=== PATIENT | male | born 1990 | race Caucasian/White ===

== ENCOUNTER 2016-07-17 10:51 | Emergency (ER) | payer SELFPAY ==
[2016-07-17 11:03] VITALS: BP 161/96; PULSE 70; RESP 18; TEMP 98.1; O2SAT 100
[2016-07-17] MEDS ORDERED: Morphine 4 mg/ml ISec IM STA (11:20)
[2016-07-17 11:31] VITALS: BMI 28.2
--- NOTE | 2016-07-17 11:31 | ED PDOC ---
Arrival/HPI - General Time Seen by Provider: 07/17/16 11:02 Historian: Patient - History of Present Illness Narrative History of Present Illness (Text): 07/17/16 11:02 A 25 year old male presents to the emergency department complaining of sudden onset right testicular pain that began 30 minutes prior to arrival. Patient denies any and trauma/injuries, dysuria, urinary frequency, abdominal pain, or any other complaints at this time. Time/Duration: 1/2 hour Symptom Onset: Sudden Symptom Course: Unchanged Quality: Other ("pain") Activities at Onset: Rest Context: Home Past Medical History - Provider Review Nursing Documentation Reviewed: Yes - Infectious Disease Hx of Infectious Diseases: None - Psychiatric Hx Substance Use: No Family/Social History - Physician Review Nursing Documentation Reviewed: Yes Family/Social History: No Known Family HX Smoking Status: Never Smoked Hx Alcohol Use: Yes Frequency of alcohol use: Socially Hx Substance Use: No Allergies/Home Meds Allergies/Adverse Reactions: Allergies No Known Allergies Allergy (Verified 07/17/16 11:03) Physical Exam - Physical Exam Narrative Physical Exam (Text): - Review of Systems Constitutional: Normal. absent: Fatigue, Weight Change, Fevers Eyes: Normal ENT: Normal Respiratory: Normal absent: SOB, Cough, Sputum Cardiovascular: Normal absent: Chest pain, Palpitations, Syncope Gastrointestinal: Normal absent: Abdominal pain, Diarrhea, Nausea, Vomiting Genitourinary: Right testicular pain. absent: Dysuria, Frequency, Hematuria Musculoskeletal: Normal. absent: Arthralgias, Back Pain, Neck Pain Skin: Normal Neurological: Normal absent: Focal Weakness Endocrine: Normal Hemo/Lymphatic: Normal Psychiatric: Normal - Physical exam Patient appears age appropriate, speaking full sentences without difficulty - Systems Exam Head: Present: Atraumatic, Normocephalic Pupils: Present: PERRL Extraocular Muscles: Present: EOMI Conjunctiva: Present: Normal Mouth: Present: Moist Mucous Membranes Neck: Present: Normal Range of Motion. No: MIDLINE TENDERNESS, Paraspinal Tenderness Respiratory/Chest: Present: Clear to Auscultation, Good Air Exchange. No: Respiratory Distress, Accessory Muscle Use, Tachypneic Cardiovascular: Present: Regular Rate and Rhythm, Normal S1, S2, Peripheral Pulses Present. No: Murmurs Abdomen: Present: Normal Bowel Sounds, No: Tenderness, Peritoneal Signs, Rebound, Guarding, Distention Genitourinary: Normal External Genitalia. Right and Left Testicles non-tender. Not high riding. No cremasteric reflex bilaterally. Female slot floor supervisor (EMT tech - Michelle) present. Back: Present: Normal Inspection. No: Midline Tenderness, Paraspinal Tenderness Upper Extremity: Present: Normal Inspection. No: Cyanosis, Edema Lower Extremity: Present: Normal Inspection. No: Edema Neurological: Present: GCS=15, Speech Normal, cranial nerves II through XII fully intact with no cerebellar abnormality, neuro-sensory fully intact. No focal neurological deficits. Skin: Present: Warm, Dry, Normal Color. No: Rashes Lymphatic: Present: OX3, NI, NC Psychiatric: Present: Alert, Oriented x 3, Normal Insight, Normal Concentration Vital Signs Temp Pulse Resp BP Pulse Ox 07/17/16 10:58 98.1 F 70 18 161/96 H 100 Temperature: Afebrile Blood Pressure: Hypertensive Pulse: Regular Respiratory Rate: Normal Appearance: Positive for: Well-Appearing, Non-Toxic, Comfortable Pain Distress: None Mental Status: Positive for: Alert and Oriented X 3 Medical Decision Making ED Course and Treatment: 07/17/16 11:02 Impression: A 25 year old male with right testicular pain. Patient seen and examined immediately upon arrival. Imaging and pain medication ordered. Differential Diagnosis include but are not limited to: orchitis vs. epididymitis vs. torsion Plan: -- Testes duplex ultrasound -- Urinalysis -- Chlamydia/GC RNA -- Morphine -- Reassess and disposition Progress Notes: 07/17/16 11:59 On reevaluation, the patient states his testicular pain is better but is now complaining of suprapubic abdominal discomfort. Will order a Abdomen/Pelvis CT to evaluate for ureteral stones. 07/17/16 12:20 Testes Duplex Ultrasound: Creator and Dictator: JUVENAL MEDINA MD IMPRESSION: Question of mild left orchitis. Small bilateral hydroceles. No evidence of mass or torsion. 07/17/16 12:45 Abdomen/Pelvis CT: Creator and Dictator: JUVENAL MEDINA MD IMPRESSION: Findings are consistent with recent passage of a 3 mm right renal stone which is now identified in the distal ureteral with periureteral inflammatory changes, diffuse dilatation of the proximal ureteral, mild hydronephrosis and perinephric inflammatory changes. Punctate nonobstructing stone in the upper pole of the left kidney. 07/17/16 12:51 pt in no distress, states he feels much better will dc home with flomax and urology contact f/u pt states he feels comfortable being dc home with outpatient f/u Pt states he understands to return to the ER right away for new or worsening symptoms or for inability to f/u with PMD or specialist as instructed. Patient states that he fully agrees with and understands discharge instructions. States that he agrees with the plan and disposition. Verbalized and repeated discharge instructions and plan. I have given the patient opportunity to ask any additional questions. - Lab Interpretations Lab Results: 07/17/16 12:00 07/17/16 12:00 Lab Results 07/17/16 12:00: WBC 10.6, RBC 4.99, Hgb 15.8, Hct 44.7, MCV 89.6, MCH 31.7, MCHC 35.3, RDW 12.6, Plt Count 191, MPV 11.5 H, Gran % 72.8 H, Lymph % (Auto) 20.1 L, [place] % (Auto) 6.6 H, Eos % (Auto) 0.3 L, Baso % (Auto) 0.2, Gran # 7.72 H, Lymph # 2.1, [place] # 0.7 H, Eos # 0.0, Baso # 0.02, Sodium 136, Potassium 3.7 , Chloride 99, Carbon Dioxide 23, Anion Gap 18, BUN 17, Creatinine 1.0, Est GFR ( Amer) > 60, Est GFR (Non-Af Amer) > 60, Random Glucose 105, Calcium 9.3 , Total Bilirubin 2.2 H, AST 32, ALT 37, Alkaline Phosphatase 65, Total Protein 8.0, Albumin 4.3, Globulin 3.7, Albumin/Globulin Ratio 1.2 07/17/16 11:56: Urine Color Yellow, Urine Appearance Clear, Urine pH 7.0, Ur Specific [place] 1.015, Urine Protein Trace H, Urine Glucose (UA) Negative, Urine Ketones 15 H, Urine Blood Trace-lysed H, Urine Nitrate Negative, Urine Bilirubin Negative, Urine Urobilinogen 1.0 H, Ur Leukocyte Esterase Negative, Urine RBC 0 - 2, Urine WBC 5 - 10, Ur Epithelial Cells 0 - 2, Amorphous Sediment Small I have reviewed the lab results: Yes - RAD Interpretation Radiology Orders: 07/17/16 11:03 TESTES DUPLEX COMPLETE [US] Stat 07/17/16 11:59 ABD & PELVIS W/O PO OR IV CONT [CT] Stat - Medication Orders Current Medication Orders: Sodium Chloride (Sodium Chloride 0.9%) 1,000 mls @ 1,000 mls/hr IV .Q1H STA Stop: 07/17/16 13:48 Ketorolac Tromethamine (Toradol) 15 mg IVP STAT STA Stop: 07/17/16 12:50 Tamsulosin HCl (Flomax) 0.4 mg PO STAT STA Stop: 07/17/16 12:50 Discontinued Medications Morphine Sulfate (Morphine) 6 mg IM STAT STA Stop: 07/17/16 11:11 Morphine Sulfate (Morphine) 8 mg IM STAT STA Stop: 07/17/16 11:21 Morphine Sulfate (Morphine) 8 mg IM STAT STA Stop: 07/17/16 11:21 Last Admin: 07/17/16 11:28 Dose: 8 MG IM Administration Charges Document 07/17/16 11:28 SE (Rec: 07/17/16 11:28 SE [id number]) Injection Site MAR Injection Site Left Arm Charges for Administration # of IM Administrations 1 - Scribe Statement The provider has reviewed the documentation as recorded by the Scribe Reynaldo Cole Provider Scribe Attestation: All medical record entries made by the Scribe were at my direction and personally dictated by me. I have reviewed the chart and agree that the record accurately reflects my personal performance of the history, physical exam, medical decision making, and the department course for this patient. I have also personally directed, reviewed, and agree with the discharge instructions and disposition. Disposition/Present on Arrival - Present on Arrival Any Indicators Present on Arrival: No History of DVT/PE: No History of Uncontrolled Diabetes: No Urinary Catheter: No History of Decub. Ulcer: No History Surgical Site Infection Following: None - Disposition Have Diagnosis and Disposition been Completed?: Yes Diagnosis: Ureteral colic Disposition: HOME/ ROUTINE Disposition Time: 12:54 Patient Plan: Discharge Condition: GOOD Discharge Instructions (ExitCare): Renal Colic (ED) Additional Instructions: PLEASE RETURN TO THE EMERGENCY DEPARTMENT FOR NEW OR WORSENING SYMPTOMS. RETURN RIGHT AWAY IF YOU CANNOT FOLLOW UP WITH YOUR PRIMARY CARE DOCTOR, CLINIC, OR SPECIALIST IN 1-2 DAYS. Prescriptions: Tamsulosin [Flomax] 0.4 mg PO DAILY #4 cap Ibuprofen [Motrin] 600 mg PO Q8 PRN #12 tab PRN Reason: Pain, Moderate (4-7) Referrals: Josue Dougherty MD [Staff Provider] - Follow up with primary Janett Dougherty MD [Staff Provider] - Follow up with primary Forms: WORK NOTE
[2016-07-17 12:12] LABS: ADD MANUAL DIFF? NO
[2016-07-17 12:14] LABS: URINE BILIRUBIN NEGATIVE (NEGATIVE); URINE BLOOD TRACE-LYSED (NEGATIVE); URINE GLUCOSE (UA) NEGATIVE (NEGATIVE); URINE KETONE 15 mg/dL (NEGATIVE); URINE LEUKOCYTE ESTERASE NEGATIVE Leu/uL (NEGATIVE); URINE PROTEIN TRACE mg/dL (<30 mg/dL)
[2016-07-17 12:17] LABS: URINE APPEARANCE CLEAR (CLEAR); URINE COLOR YELLOW (YELLOW)
[2016-07-17 12:17] LABS: BASO # 0.02 K/mm3 (0.0-2.0); BASO % 0.2 % (0.0-3.0); EOS % 0.3 % (1.5-5.0); GRAN # 7.72 (1.4-6.5); GRAN % 72.8 % (50.0-68.0); HEMATOCRIT 44.7 % (42.0-52.0); LYMPH # 2.1 (1.2-3.4); LYMPH % 20.1 % (22.0-35.0); MEAN CELL VOLUME 89.6 fL (80.0-105.0); MEAN CORPUSCULAR HEMOGLOBIN 31.7 pg (25.0-35.0); MEAN CORPUSCULAR HGB CONC 35.3 g/dl (31.0-37.0); MEAN PLATELET VOLUME 11.5 fl (7.0-11.0); MONO # 0.7 (0.1-0.6); MONO % 6.6 % (1.0-6.0); PLATELET COUNT 191 10^3/uL (120.0-450.0); RED CELL DISTRIBUTION WIDTH 12.6 % (11.5-14.5); WHITE BLOOD COUNT 10.6 10^3/ul (4.5-11.0)
--- NOTE | 2016-07-17 12:20 | US ---
HISTORY: ORCHITIS/EPIDIDYMITIS TECHNIQUE: Realtime sonography through the scrotum with color and doppler flow. COMPARISON: None Available. FINDINGS: RIGHT TESTICLE: Measures 4.5 x 2.1 x 2.7 cm. There is mild inhomogeneous echotexture and normal flow. RIGHT EPIDIDYMIS: Epididymal head measures 1.3 x 0.8 x 0.7 cm. Grossly unremarkable appearance with normal flow. LEFT TESTICLE: Measures 4.6 x 2.2 x 2.8 cm. There is mild inhomogeneous echotexture and increased flow. LEFT EPIDIDYMIS: Epididymal head measures 0.9 x 0.6 x 0.6 cm. There is a 2 mm cyst in the head. Normal flow. HYDROCELE: There are bilateral small hydroceles. VARICOCELE: None. OTHER FINDINGS: None. IMPRESSION: Question of mild left orchitis. Small bilateral hydroceles. No evidence of mass or torsion.
[2016-07-17 12:30] LABS: ALB/GLOB RATIO 1.2 (1.1-1.8); ALKALINE PHOSPHATASE 65 U/L (38-133); ALT/SGPT 37 U/L (7-56); AST/SGOT 32 U/L (15-59); BILIRUBIN,TOTAL 2.2 mg/dL (0.2-1.3); BLOOD UREA NITROGEN 17 mg/dL (7-21); CALCIUM 9.3 mg/dL (8.4-10.5); CARBON DIOXIDE 23 mmol/L (21-33); CHLORIDE 99 mmol/L (98-107); GFR AFRICAN-AMERICAN > 60; GLUCOSE,RANDOM 105 mg/dL (70-110); POTASSIUM 3.7 mmol/L (3.6-5.0); SODIUM 136 mmol/L (132-148)
[2016-07-17 12:36] LABS: URINE RBC 0 - 2 /hpf (0-2)
[2016-07-17 12:42] LABS: URINE EPITHELIAL CELLS 0 - 2 /hpf (0-5)
[2016-07-17 12:43] LABS: URINE AMORPHOUS SEDIMENT SMALL
--- NOTE | 2016-07-17 12:44 | CT ---
PROCEDURE: CT Abdomen and Pelvis without intravenous contrast HISTORY: Renal colic COMPARISON: None. TECHNIQUE: CT scan of the abdomen and pelvis was performed without administration of oral or intravenous contrast. Coronal and sagittal reformatted images were obtained. Radiation dose: Total exam DLP = 574.33 mGy-cm. FINDINGS: LOWER THORAX: The lung bases are clear. LIVER: The liver is normal in size. There is no intrahepatic biliary ductal dilatation GALLBLADDER AND BILE DUCTS: There are no calcified gallstones. PANCREAS: The pancreas is normal in size without ductal dilatation or calcifications. SPLEEN: The spleen is normal in size. ADRENALS: Both adrenal glands are normal in size without discrete nodule. KIDNEYS AND URETERS: There is a 3 mm stone in the right distal ureteral width resultant proximal ureteral dilatation, mild hydronephrosis, edema and enlargement of the right kidney and mild perinephric inflammatory changes. The left kidney is normal in size. There is significant ureteral wall thickening and periureteral edema in the distal right ureter. There is a punctate nonobstructing stone in the left upper pole. There is no left hydronephrosis or left ureteral is not dilated. VASCULATURE: Normal in caliber. No aortic aneurysm. BOWEL: The small bowel loops are normal in caliber. The colon is unremarkable. No obstruction. No gross mural thickening. APPENDIX: Not distinctly visualized. No inflammatory changes in the right lower quadrant. PERITONEUM: No free fluid. No free air. LYMPH NODES: No enlarged lymph nodes. BLADDER: Partially decompressed. REPRODUCTIVE: Unremarkable. BONES: No acute fracture. Within normal limits. OTHER FINDINGS: None. IMPRESSION: Findings are consistent with recent passage of a 3 mm right renal stone which is now identified in the distal ureteral with periureteral inflammatory changes, diffuse dilatation of the proximal ureteral, mild hydronephrosis and perinephric inflammatory changes. Punctate nonobstructing stone in the upper pole of the left kidney.
[2016-07-17] MEDS ORDERED: Sodium Chloride 0.9% 1,000 ML IV STA (12:49)
== END 2016-07-17 14:10 | disposition home or self-care (01) ==
LOC: ED 10:51
DX: N20.1 Calculus of ureter (principal)
CPT/HCPCS: 74176; 80053; 81001; 85025; 87086; 87491; 87591; 93975; 96372; 96374; 99283; J1885; J2270; J7040

== ENCOUNTER 2016-07-23 01:36 | Emergency (ER) | payer SELFPAY ==
[2016-07-23 01:37] VITALS: BMI 28.2
[2016-07-23 02:02] VITALS: RESP 16; TEMP 98.2
[2016-07-23] MEDS ORDERED: cefTRIAXone (Rocephin) 250 mg Inj IM STA (02:05)
[2016-07-23] MEDS ORDERED: Lidocaine 1% Inj (20ml) ONE (02:27)
--- NOTE | 2016-07-23 03:20 | ED PDOC ---
Arrival/HPI <BrunoYair - Last Filed: 07/23/16 03:33> - General Historian: Patient <Aditi Delgado - Last Filed: 07/23/16 04:01> - General Chief Complaint: Medical Clearance Time Seen by Provider: 07/23/16 01:59 - History of Present Illness Narrative History of Present Illness (Text): 07/23/16 25-year-old male presents today for treatment of chlamydia. Patient states he received a phone call telling him to come back into the hospital for a positive Chlamydia culture for which he was not treated when he was here in the emergency room. Patient denies penile discharge. Denies testicular pain at present time. Denies nausea vomiting diarrhea or constipation. No fevers or chills. (Aditi Delgado) Past Medical History - Provider Review Nursing Documentation Reviewed: Yes - Travel History Have you recently traveled outside [place] w/in the past 3 mons?: No - Infectious Disease Hx of Infectious Diseases: None - Tetanus Immunization Tetanus Immunization: Unknown - Psychiatric Hx Substance Use: No <Aditi Delgado - Last Filed: 07/23/16 04:01> Family/Social History - Physician Review Nursing Documentation Reviewed: Yes Family/Social History: Unknown Family HX Smoking Status: Never Smoked Hx Alcohol Use: Yes Hx Substance Use: No <Aditi Delgado - Last Filed: 07/23/16 04:01> Allergies/Home Meds <BrunoYair - Last Filed: 07/23/16 03:33> <Aditi Delgado - Last Filed: 07/23/16 04:01> Allergies/Adverse Reactions: Allergies seafood Allergy (Uncoded 07/23/16 01:56) ANAPHYLAXIS Home Medications: Home Meds Medication Instructions Recorded Confirmed No Known Home Med 07/23/16 07/23/16 Review of Systems - Review of Systems Constitutional: absent: Fatigue, Fevers Respiratory: absent: SOB, Cough Cardiovascular: absent: Chest Pain, Palpitations Gastrointestinal: absent: Abdominal Pain, Nausea, Vomiting Genitourinary Male: absent: Dysuria, Frequency, Hematuria, Urinary Output Changes Musculoskeletal: absent: Arthralgias, Back Pain, Neck Pain Skin: absent: Rash, Pruritis Neurological: absent: Headache, Dizziness <Aditi Delgado - Last Filed: 07/23/16 04:01> Physical Exam Vital Signs Reviewed: Yes Temperature: Afebrile Blood Pressure: Normal Pulse: Regular Respiratory Rate: Normal Appearance: Positive for: Well-Appearing, Non-Toxic, Comfortable Pain Distress: None Mental Status: Positive for: Alert and Oriented X 3 - Systems Exam Head: Present: Atraumatic Mouth: Present: Moist Mucous Membranes Respiratory/Chest: Present: Clear to Auscultation Cardiovascular: Present: Regular Rate and Rhythm Abdomen: No: Tenderness Neurological: Present: GCS=15 Skin: Present: Warm, Dry Psychiatric: Present: Alert <Aditi Delgado - Last Filed: 07/23/16 04:01> Vital Signs Temp Pulse Resp BP Pulse Ox 07/23/16 02:01 98.2 F 83 16 124/77 97 Medical Decision Making <Yair Carr - Last Filed: 07/23/16 03:33> <Aditi Delgado - Last Filed: 07/23/16 04:01> ED Course and Treatment: 07/23/16 04:00 Patient is nontoxic well-appearing in no distress Patient with positive chlamydia culture on previous ER visit. Rocephin and Zithromax given Patient was advised to refrain from sexual intercourse for 10 days. He was advised to have his partners tested and treated. He was advised to return immediately if any concerning symptoms develop Patient verbalizes understanding of discharge instructions and need for immediate followup. all aspects of this case were discussed the attending of record. Impression: Chlamydia Follow up with primary care physician Have your partners tested and treated Refrain from sexual intercourse for at least 10 days (Aditi Delgado) - Medication Orders Current Medication Orders: Discontinued Medications Azithromycin (Zithromax) 1,000 mg PO STAT STA PRN Reason: Protocol Stop: 07/23/16 02:06 Last Admin: 07/23/16 02:19 Dose: 1,000 MG Ceftriaxone Sodium (Rocephin) 250 mg IM STAT STA PRN Reason: Protocol Stop: 07/23/16 02:06 Last Admin: 07/23/16 02:19 Dose: 250 MG IM Administration Charges Document 07/23/16 02:19 EKEOO (Rec: 07/23/16 02:19 [id number]) Charges for Administration # of IM Administrations 1 Lidocaine HCl (Lidocaine 1% (20ml)) Confirm Administered Dose 20 ml .ROUTE .STK- MED ONE Stop: 07/23/16 02:28 Last Admin: 07/23/16 02:31 Dose: 1 mL - PA / INFRASTRU[employer]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 <Yair Carr - Last Filed: 07/23/16 03:33> Disposition/Present on Arrival <Yair Carr - Last Filed: 07/23/16 03:33> - Present on Arrival Any Indicators Present on Arrival: No History of DVT/PE: No History of Uncontrolled Diabetes: No Urinary Catheter: No History of Decub. Ulcer: No History Surgical Site Infection Following: None - Disposition Have Diagnosis and Disposition been Completed?: Yes Disposition Time: 02:50 Patient Plan: Discharge <Aditi Delgado - Last Filed: 07/23/16 04:01> - Disposition Diagnosis: Chlamydia Disposition: HOME/ ROUTINE Patient Problems: Current Active Problems Problem Status Diagnosed Chlamydia Acute Condition: GOOD Additional Instructions: Follow up with primary care physician Have your partners tested and treated Refrain from sexual intercourse for at least 10 days Referrals: Chetna Lao MD [Staff Provider] - Follow up with primary
[2016-07-23 04:13] VITALS: BP 112/62; PULSE 78; O2SAT 99
== END 2016-07-23 04:15 | disposition home or self-care (01) ==
LOC: ED 01:36
DX: A74.9 Chlamydial infection, unspecified (principal)
CPT/HCPCS: 96372; 99282; J0696

== ENCOUNTER 2016-07-23 19:29 | Emergency (ER) | payer SELFPAY ==
[2016-07-23 19:46] VITALS: BMI 32.3
[2016-07-23 19:48] VITALS: BP 143/98; PULSE 67; RESP 16; TEMP 98.3
--- NOTE | 2016-07-23 20:00 | ED PDOC ---
Arrival/HPI - General Chief Complaint: Male Genitourinary Time Seen by Provider: 07/23/16 19:57 Historian: Patient - History of Present Illness Narrative History of Present Illness (Text): 07/23/16 20:00 This 25 yo male presents to this ED c/o dysuria. Patient stated he was seen in this ED for same complains yesterday in which he was treated for chlamydia. Patient denies n/v, sob, rectal bleeding, dizziness, or abnormal gait. Patient noted a mild right groin pain. Time/Duration: Prior to Arrival Quality: Aching Context: Home Past Medical History - Provider Review Nursing Documentation Reviewed: Yes - Infectious Disease Hx of Infectious Diseases: None - Tetanus Immunization Tetanus Immunization: Unknown - Cardiac Hx Cardiac Disorders: No - Pulmonary Hx Respiratory Disorders: No - Neurological Hx Neurological Disorder: No - HEENT Hx HEENT Disorder: No - Renal Hx Kidney Stones: Yes - Endocrine/Metabolic Hx Endocrine Disorders: No - Hematological/Oncological Hx Blood Disorders: No - Integumentary Hx Dermatological Disorder: No - Musculoskeletal/Rheumatological Hx Musculoskeletal Disorders: No - Gastrointestinal Hx Gastrointestinal Disorders: No - Genitourinary/Gynecological Hx Sexually Transmitted Diseases: Yes - Psychiatric Hx Psychophysiologic Disorder: No Hx Substance Use: No - Anesthesia Hx Anesthesia: No Family/Social History - Physician Review Nursing Documentation Reviewed: Yes Family/Social History: No Known Family HX Smoking Status: Never Smoked Hx Alcohol Use: Yes Hx Substance Use: No Allergies/Home Meds Allergies/Adverse Reactions: Allergies shellfish derived Allergy (Verified 07/23/16 19:47) ANAPHYLAXIS seafood Allergy (Uncoded 07/23/16 01:56) ANAPHYLAXIS Review of Systems - Review of Systems Constitutional: Normal. absent: Fatigue, Weight Change, Fevers Eyes: Normal ENT: Normal Respiratory: Normal. absent: SOB, Cough Cardiovascular: Normal Gastrointestinal: Normal, Other (Right groin pain). absent: Abdominal Pain, Nausea Genitourinary Male: Dysuria. absent: Frequency, Hematuria Musculoskeletal: Normal Skin: Normal Neurological: Normal Endocrine: Normal Hemo/Lymphatic: Normal Psychiatric: Normal Physical Exam Vital Signs Temp Pulse Resp BP Pulse Ox 07/23/16 20:32 16 98 07/23/16 19:47 98.3 F 67 16 143/98 H 100 Temperature: Afebrile Blood Pressure: Normal Pulse: Regular Respiratory Rate: Normal Appearance: Positive for: Well-Appearing, Non-Toxic, Comfortable Pain Distress: None Mental Status: Positive for: Alert and Oriented X 3 - Systems Exam Head: Present: Atraumatic, Normocephalic Pupils: Present: PERRL Extroacular Muscles: Present: EOMI Conjunctiva: Present: Normal Mouth: Present: Moist Mucous Membranes Neck: Present: Normal Range of Motion Respiratory/Chest: Present: Clear to Auscultation, Good Air Exchange. No: Respiratory Distress, Accessory Muscle Use Cardiovascular: Present: Regular Rate and Rhythm, Normal S1, S2. No: Murmurs Abdomen: Present: Normal Bowel Sounds. No: Tenderness, Distention, Peritoneal Signs, Rebound, Guarding Genitourinary Male: Present: Other (deferred) Back: Present: Normal Inspection. No: CVA Tenderness Upper Extremity: Present: Normal Inspection, Normal ROM, NORMAL PULSES, Neurovascularly Intact, Capillary Refill < 2s. No: Cyanosis, Edema Lower Extremity: Present: Normal Inspection, NORMAL PULSES, Normal ROM, Neurovascularly Intact, Capillary Refill < 2 s. No: Edema Neurological: Present: GCS=15, CN II-XII Intact, Speech Normal, Normal Sensory Function, Normal Cerebellar Funct, Gait Normal, Memory Normal. No: Motor Func Grossly Intact Skin: Present: Warm, Dry, Normal Color. No: Rashes Psychiatric: Present: Alert, Oriented x 3, Normal Insight, Normal Concentration Medical Decision Making ED Course and Treatment: 07/23/16 20:13 Re-evaluation. Patient feels better. Discussed results and plan with patient who expresses understanding. All questions answered and there is agreement with the plan to discharge home with instructions. Patient stable for discharge. Return if symptoms persist or worsen. Re-evaluation Time: 20:13 Reassessment Condition: Re-examined, Improved Disposition/Present on Arrival - Present on Arrival Any Indicators Present on Arrival: No History of DVT/PE: No History of Uncontrolled Diabetes: No Urinary Catheter: No History of Decub. Ulcer: No History Surgical Site Infection Following: None - Disposition Have Diagnosis and Disposition been Completed?: Yes Diagnosis: Dysuria Disposition: HOME/ ROUTINE Disposition Time: 20:14 Patient Plan: Discharge Condition: GOOD Discharge Instructions (ExitCare): Dysuria (ED) Additional Instructions: Call private doctor for follow up visit in 1-2 days. Take medication as instructed. Call clinic for revaluation. STD test needs to be repeated in 3-4 weeks. No sexual intercourse till second STD test is negative. Always use protection Prescriptions: Doxycycline Monohydrate 100 mg PO BID #28 tablet Referrals: [facility] [Outside] - Follow up with primary Forms: WORK NOTE
[2016-07-23 20:32] VITALS: O2SAT 98
== END 2016-07-23 20:32 | disposition home or self-care (01) ==
LOC: ED 19:29
DX: R30.0 Dysuria (principal)